=== PATIENT | male | born 1945 | race Caucasian/White ===

== ENCOUNTER → 2021-01-28 | Day surgery (SDC) | payer MEDICARE, BC ==
[~2021-01-28] MED LIST: Lidocaine 1% 30 ML SDV ONE
[2021-01-28 13:35] VITALS: BP 133/65; PULSE 60
== END ==
LOC: CC.SDS 11:03
PROVIDERS: ATTEND Family Medicine
DX: I87.2 Venous insufficiency (chronic) (peripheral) (principal); I83.812 Varicose veins of left lower extremity with pain; E87.5 Hyperkalemia; N40.0 Benign prostatic hyperplasia without lower urinary tract symptoms; K21.9 Gastro-esophageal reflux disease without esophagitis
CPT/HCPCS: A4216

== ENCOUNTER → 2021-02-04 | Day surgery (SDC) | payer MEDICARE, BC ==
[2021-02-04 13:51] VITALS: BP 143/78; PULSE 80
== END ==
LOC: CC.SDS 11:01
PROVIDERS: ATTEND Family Medicine
DX: I83.813 Varicose veins of bilateral lower extremities with pain (principal); I87.2 Venous insufficiency (chronic) (peripheral); E78.5 Hyperlipidemia, unspecified; N40.0 Benign prostatic hyperplasia without lower urinary tract symptoms; K21.9 Gastro-esophageal reflux disease without esophagitis

== ENCOUNTER → 2023-02-12 | Day surgery (SDC) | payer MEDICARE, BC ==
[~2023-02-12] MED LIST changes: +Ketamine 200 MG/20 ML MDV ONE; +Lactated Ringers 1,000 ML IV SCH; -Lidocaine 1% 30 ML SDV ONE; +Propofol 200 MG/20 ML SDV ONE; +fentaNYL 50 MCG/ML SDV ONE
[2023-02-12 11:49] VITALS: BP 121/75; PULSE 53
== END ==
LOC: CC.SDS 07:33
PROVIDERS: ATTEND Family Medicine
DX: Z12.11 Encounter for screening for malignant neoplasm of colon (principal); D12.2 Benign neoplasm of ascending colon; K57.30 Diverticulosis of large intestine without perforation or abscess without bleeding; K57.90 Diverticulosis of intestine, part unspecified, without perforation or abscess without bleeding; K64.8 Other hemorrhoids; K21.9 Gastro-esophageal reflux disease without esophagitis; E78.5 Hyperlipidemia, unspecified; M19.90 Unspecified osteoarthritis, unspecified site; E55.9 Vitamin D deficiency, unspecified; N40.0 Benign prostatic hyperplasia without lower urinary tract symptoms; Z79.899 Other long term (current) drug therapy; Z86.16 Personal history of COVID-19
CPT/HCPCS: 00812; 88305; 99100; J2704; J3010; J3490; J7120